=== PATIENT | male | born 1985 | race African-American/Black ===

== ENCOUNTER 2020-04-21 12:45 | Emergency (ER) | payer OTHER ==
--- NOTE | 2020-04-21 13:53 | RAD ---
RADIOGRAPH CHEST 1 VIEW: DATE: 04/21/2020 HISTORY: 34-year-old male with dyspnea. FINDINGS: There are no air space densities, pulmonary edema, pneumothorax, or cardiomegaly. The lateral costop hrenic angles are sharp. IMPRESSION: No acute cardiopulmonary findings. jn [] POS: [facility]
[2020-04-22 12:58] LABS: SARS-CoV-2 MS2 Positive; SARS-CoV-2 N Gene Negative; SARS-CoV-2 S Gene Negative; SARS-CoV-2 by NAA Not Detected (NotDetected); SARS-CoV-2 orf1ab Negative
== END 2020-04-21 15:05 | disposition home or self-care (01) ==
LOC: MADERS 12:45
DX: B34.9 Viral infection, unspecified (principal); Z20.828 Contact with and (suspected) exposure to other viral communicable diseases; F17.210 Nicotine dependence, cigarettes, uncomplicated
CPT/HCPCS: 71045; 87081; 87430; 87635; 87804; U0003